=== PATIENT | male | born 1985 | race Caucasian/White ===

== ENCOUNTER 2016-12-22 15:33 | Outpatient (CLI) | payer BC ==
--- NOTE | 2016-12-22 16:04 | RAD ---
LUMBAR SPINE TWO VIEWS 12/22/16 COMPARISON: None. HISTORY: Back pain. FINDINGS: Five lumbar type vertebral bodies are present with intact pedicles on frontal imaging. An age indeterminate anterior wedge compression fracture is present at the L3 level with approximatel y 10-50% loss of vertebral body height anteriorly. There is mild disc space narrowing at the L5-S1 le mimi. IMPRESSION: Age indeterminate superior end plate fracture/anterior wedge compression fracture of L3 vertebral bod ies. POS: [facility]
== END 2016-12-22 15:34 | disposition home or self-care (01) ==
LOC: TBSIIMAG 15:33
PROVIDERS: ATTEND Physician Assistant
DX: M54.9 Dorsalgia, unspecified (principal); S32.030A Wedge compression fracture of third lumbar vertebra, initial encounter for closed fracture
CPT/HCPCS: 72100

== ENCOUNTER 2017-01-17 15:09 | Outpatient (CLI) | payer BC ==
--- NOTE | 2017-01-17 17:24 | RAD ---
LUMBAR SPINE: 01/17/17 Two views. HISTORY: Back pain. Followup compression fracture. Comparison made to lumbar films of 12/22/16. That exam revealed mild anterior wedge compression fracture of the L3 vertebra with mild loss of ante rior height. On today's exam, the mild anterior wedging of the L3 vertebra is again noted. There is slight irregul arity of the anterior cortex suggesting subacute injury. The degree of wedging and compression does n ot appear changed from 12/22/16. The other lumbar vertebrae maintain normal height and alignment. No significant interval change seen. IMPRESSION: Mild anterior wedge compression of the L3 vertebra is stable from 12/22/16. POS: [facility]
== END 2017-01-17 15:10 | disposition home or self-care (01) ==
LOC: TBSIIMAG 15:09
PROVIDERS: ATTEND Neurological Surgery
DX: M54.5 Low back pain (principal); S32.030D Wedge compression fracture of third lumbar vertebra, subsequent encounter for fracture with routine healing
CPT/HCPCS: 72100

== ENCOUNTER 2017-02-24 12:34 | Outpatient (CLI) | payer BC | END 2017-02-24 12:35 | disposition home or self-care (01) | LOC: BICCT 12:34 | PROVIDERS: ATTEND Orthopaedic Surgery Hand Surgery | DX: S52.201A Unspecified fracture of shaft of right ulna, initial encounter for closed fracture (principal); S62.514A Nondisplaced fracture of proximal phalanx of right thumb, initial encounter for closed fracture ==

== ENCOUNTER 2017-03-07 16:19 | Outpatient (CLI) | payer BC ==
--- NOTE | 2017-03-08 12:16 | RAD ---
LUMBAR SPINE 2 VIEWS: HISTORY: Low back pain. COMPARISON: 01/17/17. FINDINGS: Compression of the L3 superior end plate with loss of height by approximately 10% is similar in appea margarita to the previous exam. No significant retropulsion. Other vertebral body heights are maintaine d. Degenerative changes involve the lower lumbar spine. IMPRESSION: Stable radiographic appearance of the L3 superior end plate compression. POS: [facility]
== END 2017-03-07 16:20 | disposition home or self-care (01) ==
LOC: TBSIIMAG 16:19
PROVIDERS: ATTEND Neurological Surgery
DX: S22.008A Other fracture of unspecified thoracic vertebra, initial encounter for closed fracture (principal); M51.86 Other intervertebral disc disorders, lumbar region
CPT/HCPCS: 72100

== ENCOUNTER 2017-05-09 13:50 | Outpatient (CLI) | payer BC ==
--- NOTE | 2017-05-09 15:17 | RAD ---
LUMBAR SPINE TWO VIEWS: Comparison: 03-07-17 History: L3 fracture. FINDINGS: Stable mild loss of vertebral body height at L3. Remaining lumbar vertebrae has preservation of the v ertebral body height. IMPRESSION: Stable L3 superior endplate compression fracture. POS: [facility]
== END 2017-05-09 13:51 | disposition home or self-care (01) ==
LOC: TBSIIMAG 13:50
PROVIDERS: ATTEND Neurological Surgery
DX: M54.9 Dorsalgia, unspecified (principal); S32.039A Unspecified fracture of third lumbar vertebra, initial encounter for closed fracture
CPT/HCPCS: 72100